=== PATIENT | female | born 1940 | race Caucasian/White ===

== ENCOUNTER → 2017-03-15 | Outpatient (CLI) | payer MEDICARE ==
[~2017-03-15] MED LIST: ASPIRIN LO-DOSE81 MG PO; CITRACAL+D(315M1 TAB PO; COLACE100 MG PO; DILAUDID 2MG(HYD2 MG PO; FISH OIL1000 MG PO; LIPITOR10 MG PO; MIRALAX17 GM PO; PLAQUENIL200 MG PO; TYLENOL EXTRA500 MG PO; VALIUM5 MG PO; XARELTO10 MG PO; ZOFRAN4 MG PO
== END | disposition disaster alternative care site (69) ==
LOC: GBCOE 13:29
DX: Z13.820 Encounter for screening for osteoporosis (principal); Z78.0 Asymptomatic menopausal state